=== PATIENT | male | born 2005 | race Caucasian/White ===

== ENCOUNTER 2025-01-30 10:02 | Emergency (ER) | payer SELFPAY ==
[2025-01-30] MEDS: Diphtheria,Pertussis(Acell),Tetanus Vaccine 0.5 ML Syringe IM ONE (11:45)
[2025-01-30] MEDS: Lidocaine 1% 10 ML MDV INJECT ONE (11:46)
== END 2025-01-30 13:18 | disposition home or self-care (01) ==
LOC: JD.ED 10:02 → MERGE 10:02 → JD.ED 13:18
DX: S61.211A Laceration without foreign body of left index finger without damage to nail, initial encounter (principal); W45.8XXA Other foreign body or object entering through skin, initial encounter
CPT/HCPCS: 12001; 90471; 90715; 99282; J2003